=== PATIENT | female | born 1960 | race Caucasian/White ===

== ENCOUNTER → 2016-09-10 | Outpatient (CLI) | payer BC ==
[~2016-09-10] MED LIST: CITRTAB15 PO; ESTRTAB10 PO; IBUP200C AD; LIDO1OIN2 TOP; VITAMIN E OTC
--- NOTE | 2016-09-10 10:00 | REPMRS ---
Patient History The patient states she had a clinical breast exam in 08/2016. Patient is postmenopausal. No known family history of cancer. Digital Woman Screen Mammo: September 10, 2016 - Exam #: [id number] Bilateral CC and MLO view(s) were taken. Technologist: Chel Carter, Technologist Prior study comparison: September 08, 2015, digital woman screen mammo performed at [facility] to [facility]. September 08, 2014, left breast digital mammo diagnostic unilateral, performed at [facility]. September 06, 2014, digital woman screen mammo performed at [facility]. September 03, 2013, digital woman screen mammo performed at [facility]. FINDINGS: There are scattered fibroglandular densities. The previously noted left breast coarse calcifications are virtually resolved. There is a moderate amount of residual fibroglandular tissue which is fairly symmetric. There is no interval development of dominant mass, architectural distortion, or clustered microcalcification typical of malignancy. There has been no change in the appearance of the mammogram from the prior studies. ASSESSMENT: BI-RADS/ACR category 1 mammogram. Negative. Recommendation Routine screening mammogram of both breasts in 1 year (for women over age 40). This mammogram was interpreted with the aid of an FDA-approved computer-aided dectection system. Electronically Signed By: Reynold Aviles MD 09/10/16 0959
== END ==
LOC: M WHC 08:24
PROVIDERS: ATTEND Nurse Practitioner Family
DX: Z12.31 Encounter for screening mammogram for malignant neoplasm of breast (principal)

== ENCOUNTER → 2017-03-06 | Outpatient (REF) | payer BC, OTHER ==
[~2017-03-06] MED LIST changes: -IBUP200C AD; +IBUP200C10 AD
== END ==
LOC: M LAB REF 13:48
PROVIDERS: ATTEND Physician Assistant
DX: J02.9 Acute pharyngitis, unspecified (principal)

== ENCOUNTER → 2017-09-11 | Outpatient (REF) | payer OTHER | LOC: M SFHCWAGY 09:07 | DX: N76.0 Acute vaginitis (principal) | CPT/HCPCS: G0123 ==

== ENCOUNTER → 2017-09-11 | Outpatient (CLI) | payer BC | LOC: M WHC 08:44 | DX: Z12.31 Encounter for screening mammogram for malignant neoplasm of breast (principal) | CPT/HCPCS: 77067 ==

== ENCOUNTER → 2018-06-19 | Outpatient (REF) | payer OTHER ==
[~2018-06-19] MED LIST changes: +CHEW500C2 PO; -IBUP200C10 AD; +IBUP200C25 AD; +IBUP200C25 PO; +TYLE500T78 PO
[2018-06-20 10:51] LABS: HEPATITIS A ANTIBODY IGM NEGATIVE (NEGATIVE); HEPATITIS B CORE ANTIBODY IGM NEGATIVE (NEGATIVE); HEPATITIS B SURFACE ANTIGEN NEGATIVE (NEGATIVE); HEPATITIS C VIRUS ABY INDEX 0.1 INDEX (<0.8)
== END ==
LOC: M LAB REF 12:45
PROVIDERS: ATTEND Nurse Practitioner Family
DX: L81.8 Other specified disorders of pigmentation (principal)

== ENCOUNTER → 2018-09-12 | Outpatient (CLI) | payer BC ==
--- NOTE | 2018-09-12 11:15 | REP ---
BILATERAL SCREENING DIGITAL MAMMOGRAM WITH 3D TOMOSYNTHESIS: There are no palpable abnormalities or other breast complaints. The the patient states she had a clinical breast examination in August 2018. The the patient states she performs self-breast examinations 12 times per year. The Tyrer Cuzick Score is: 7.7% . Comparison is 09/08/2015 The breasts are heterogeneously dense, which could obscure small masses. There is no dominant mass, micro calcific cluster or architectural distortion that would indicate malignancy. On the comparison study 09/08/2015. There were macrocalcifications laterally in the left breast. These calcifications are no longer present. There are no additional findings on 3D tomosynthesiss. There is no change from the prior study. Impression: BIRADS/ACR category 1 mammogram. Negative. Recommendation: Routine annual screening mammography. This mammogram was interpreted with the aid of a FDA approved computer-aided detection system. A. Negative mammogram reports should not delay biopsy if a dominant or clinically suspicious mass is present. B. Not all breast cancers are identified by mammography or tomosynthesis. C. Adenosis and dense breasts may obscure an underlying neoplasm. Patient letter M1 dense breasts. Electronically Signed by Rajeev Mejia MD 09/12/2018 11:07 A
== END ==
LOC: M WHC 09:10
PROVIDERS: ATTEND Nurse Practitioner Family
DX: Z12.31 Encounter for screening mammogram for malignant neoplasm of breast (principal)

== ENCOUNTER → 2019-01-01 | Outpatient (REF) | payer OTHER ==
[2019-01-02 11:09] LABS: HEPATITIS A ANTIBODY IGM NEGATIVE (NEGATIVE); HEPATITIS B CORE ANTIBODY IGM NEGATIVE (NEGATIVE); HEPATITIS B SURFACE ANTIGEN NEGATIVE (NEGATIVE); HEPATITIS C VIRUS ABY INDEX 0.1 INDEX (<0.8)
== END ==
LOC: M LAB REF 12:35
PROVIDERS: ATTEND Nurse Practitioner Family
DX: L81.8 Other specified disorders of pigmentation (principal)

== ENCOUNTER → 2019-09-16 | Outpatient (CLI) | payer BC ==
--- NOTE | 2019-09-16 09:02 | REPMRS ---
Patient History The patient states she had a clinical breast exam in September 2019. No known family history of cancer. No Hormone Replacement Therapy Digital Woman Screen Mammo: September 16, 2019 - Exam #: [id number] Bilateral CC and MLO view(s) were taken. Technologist: Carol Snowden, Technologist Prior study comparison: September 12, 2018, bilateral digital woman screen mammo performed at [facility]. September 11, 2017, bilateral digital woman screen mammo performed at [facility]. September 10, 2016, digital woman screen mammo performed at [facility]. FINDINGS: There are scattered fibroglandular densities. The Volpara volumetric breast density category is:B. There has been no change in the appearance of the mammogram from the prior studies. There is a mild amount of scattered fibroglandular density which is fairly symmetric. There is no interval development of dominant mass, architectural distortion, or grouped microcalcification suggestive of malignancy. 3-D tomosynthesis shows no additional findings. Assessment: BI-RADS/ACR category 1 mammogram. Negative Mammogram. Recommendation Routine screening mammogram of both breasts in 1 year (for women over age 40). This patient's Lifetime Breast Cancer Risk is estimated at 7.5 %. This mammogram was interpreted with the aid of an FDA-approved computer-aided dectection system. Electronically Signed By: Reynold Aviles MD 09/16/19 0901
== END ==
LOC: M WHC 08:00
PROVIDERS: ATTEND Nurse Practitioner Family
DX: Z12.31 Encounter for screening mammogram for malignant neoplasm of breast (principal)

== ENCOUNTER → 2020-04-13 | Outpatient (CLI) | payer BC ==
[~2020-04-13] MED LIST changes: +ACET500T15 PO; +ATOR1TAB19 PO; +CALC-362 PO; -CHEW500C2 PO; +OMEG350C PO
== END ==
LOC: M LABSMTC 12:16
PROVIDERS: ATTEND Anesthesiology
DX: Z01.812 Encounter for preprocedural laboratory examination (principal); Z20.822 Contact with and (suspected) exposure to COVID-19

== ENCOUNTER 2020-04-18 12:53 | Day surgery (SDC) | payer BC, OTHER ==
[~2020-04-18] VITALS: Ht 175.3 cm; Wt 76.7 kg
[~2020-04-18 12:53] MED LIST changes: +NS 1,000 ML IV ONE
--- OUTSIDE RECORDS SUMMARY | 2020-04-18 12:58 | CCD | Continuity of Care Document ---
Author Author Katharina THURSTON M.D. Organization Unknown Address [address] [place] [address] Phone [phone] Care Team Providers Care Flatbed Driver Name Role Phone Chrissy Canchola B[employer]ER [employer]SEMBLER AUTM [phone] Problems Active Problems Provider Date Screening for malignant neoplasm of colon Beltran Pearson Onset: 04/06/2014 History of polyp of colon Avtar Thurston M.D. Onset: Screening for malignant neoplasm of colon Avtar steiner M.D. Onset: 05/05/2015 Social History Type Date Description Comments Sex Unknown ETOH Use Occasionally Tobacco Use Start: Unknown Patient has never smoked Allergies, Adverse Reactions, Alerts Description No Known Drug Allergies Medications Active Medications SIG Qnty Indications Ordering Provide r Date [place] [phone] Tablets as directed 1box Avtar Thurston M.D. 04/07/2020 Ibuprofen Unknown Byron Red OTC Unknown Atorvastatin Calcium 10mg Tablets Take 1 Tablet By Mouth Every Day Unknown Calcium 250mg Capsules Unknown Ibuprofen 200 200mg Tablets Unknown Immunizations Description No Information Available Vital Signs Date Vital Result Comment 04/07/2020 11:42am Height 68 inches 5'8" Weight 175.00 lb BP Systolic 132 mmHg BP Diastolic 75 mmHg Heart Rate 74 /min BMI (Body Mass Index) 26.6 kg/m2 Weight 79.380 kg Body Temperature 97.5 F 02/21/2017 3:09pm Height 68 inches 5'8" Weight 173.00 lb BP Systolic 144 mmHg BP Diastolic 92 mmHg Heart Rate 86 /min BMI (Body Mass Index) 26.3 kg/m2 Weight 78.473 kg Results Description No Information Available Procedures Description No Information Available Medical Devices Description No Information Available Encounters Type Date Location Provider Dx Diagnosis Office Visit 04/07/2020 11:00a Main Office Avtar Thurston M.D. Z 86.010 Personal history of colonic polyps Assessments Date Code Description Provider 04/07/2020 Z86.010 Personal history of colonic poly ps Avtar Thurston M.D. Plan of Treatment Future Appointment(s):* 04/18/2020 2:00 pm - Avtar Thurston M.D. at Main Office 04/07/2020 - Avtar Thurston M.D.* Z86.010 Personal history of colonic polyps* Comments:* 59 yo wf who presents for a colonoscopy due to a h/o colonic polyps. Last scope was in 2018. No c/o abdominal pain, weight loss, change in bowel habits, or rectal bleeding. No family h/o colon cancer. No h/o chest pain, or sob. Plan:1.Schedule patient for Colonoscopy. 2. Informed consent given.3. Advised to stop asa, plavix,and anticoagulation 3 to 7 days prior to the procedures. Functional Status Description No Information Available Mental Status Description No Information Available Referrals Description No Information Available
--- OUTSIDE RECORDS SUMMARY | 2020-04-18 12:58 | CCD | Continuity of Care Document ---
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 Onset: 12/12/19 17 Social History Type Date Description Comments Sex Unknown ETOH Use Drinks 3 Alcoholic Beverages Per Week Tobacco Use Start: Unknown Patient has never smoked Allergies, Adverse Reactions, Alerts Description No Known Drug Allergies Medications Active Medications SIG Qnty Indications Ordering Provide r Date Ibuprofen 200 200mg Tablets 2-3 q pm po Adolph Whiteside MD 01/14/2020 Bowlus 3 1000mg Capsules 1 by mouth every day Geno Barrios FNP 01/01/2019 Acetaminophen Extra Strength 500mg Tablets 1 by mouth Q Am Geno Barrios FNP 12/19 Atorvastatin Calcium 10mg Tablets 1 by mouth every day 90tabs Adolph Whiteside MD 06/13/2017 Citracal Plus Bone Density Builder Tablets 1 qd PO Unknown Immunizations CPT Code Status Date Vaccine Lot # [id number] Given 12/05/2015 Adacel- Tetanus Diphtheria P ertussis (Age64 & Under) [id number] Refused 01/01/2019 Influenza Vaccin e Quadrivalent Preser/Antibiotic Free Im Use [id number] Refused 12/19/2017 Influenza Virus Vaccine, Quadrivalent ([id number]), Derived From Cell Vital Signs Date Vital Result Comment 01/14/2020 8:57am BP Systolic 124 mmHg RT Arm BP Diastolic 80 mmHg RT Arm Heart Rate 76 /min Height 68 inches 5'8" Weight 174.00 lb BMI (Body Mass Index) 26.5 kg/m2 01/01/2019 9:00am BP Systolic 124 mmHg RT Arm BP Diastolic 72 mmHg RT Arm Heart Rate 85 /min Height 68 inches 5'8" Weight 170.25 lb O2 % BldC Oximetry 98 % RM Air BMI (Body Mass Index) 25.9 kg/m2 Results Test Acquired Date Facility Test Result H/L Range Note Comprehensive Chem Profile 01/14/2020 [facility] Prepared Foods Service Team Member: [place] [address] [phone] Glucose 89 mg/dL 74 - 99 1 BUN 16 mg/dL 7 - 18 Creatinine 0.8 mg/dL 0.6 - 1.3 Sodium 142 mEq/L 136 - 145 Potassium 4.2 mEq/L 3.5 - 5.1 Chloride 106 mEq/L 98 - 107 Carbon Dioxide 27 mEq/L 21 - 32 Calcium 9.2 mg/dL 8.5 - 10.1 Alk. Phosphatase 75 mg/dL 46 - 116 Total Bilirubin 0.5 mg/dL 0.2 - 1.0 Ast (Sgot) 21 U/L 15 - 37 Alt (SGPT) 26 U/L 12 - 78 Albumin 4.3 g/dL 3.4 - 5.0 Total Protein 7.4 g/dL 6.4 - 8.2 A/G Ratio 1.39 CALC 1.00 - 1.90 GFR >= 60 mL/min >60 GFR >= 60 mL/min >60 2 Lipid Profile 01/14/2020 [facility] Prepared Foods Service Team Member: [place] [address] [phone] Cholesterol 193 mg/dL 131 - 200 Triglycerides 73 mg/dL 30 - 150 HDL Cholesterol 73 mg/dL High 35 - 60 LDL (Calculated) 105 CALC 50 - 159 1 100-125 mg/dL PRE-DIABET ES/FASTING >126 mg/dL DIABETES/FASTING 2 CHRONIC KIDNEY DISEASE STAGI NG PER NKF STAGE I & II GFR >= 60 NORMAL TO MILDLY DECREASED STAGE III GFR 30-59 MODERATELY DECREASED STAGE IV GFR 15-29 SEVERELY DECREASED STAGE V GFR <15 VERY LITTLE GFR LEFT ESRD GFR <15 ON DATA PROCESSING MECHANIC Procedures Date Code Description Status 03/25/2017 [id number] Colonoscopy Completed 12/20/2015 [id number] Colonoscopy Completed 05/09/2015 [id number] Colonoscopy Completed 10/27/2014 [id number] Colonoscopy Completed 04/15/2014 [id number] Colonoscopy Completed 04/14/2014 [id number] Colonoscopy Completed Medical Devices Description No Information Available Encounters Type Date Location Provider Dx Diagnosis Office Visit 01/14/2020 9:00a [facility] JIMY Croft Z00.00 Encntr for general adult medical exam w/ o abnormal findings E78.00 Pure hypercholesterolemia, u nspecified N95.1 Menopausal and female climac teric states Z86.010 Personal history of colonic polyps M54.2 Cervicalgia N32.81 Overactive bladder E66.3 Overweight Z68.26 Body mass index [BMI] 26.0-2 6.9, adult Z13.89 Encounter for screening for other disorder Assessments Date Code Description Provider 01/14/2020 Z00.00 Encounter for genera l adult medical examination without abnormal findings JIMY Goel 01/14/2020 E78.00 Pure hypercholesterolemia, unspe cified Chrissy Canchola, JIMY 01/14/2020 N95.1 Menopausal and female climacteri c states JIMY Goel 01/14/2020 Z86.010 Personal history of colonic poly ps Chrissy Canchola, JIMY 01/14/2020 M54.2 Cervicalgia Chrissy Canchola, F [employer]ELD 01/14/2020 N32.81 Overactive bladder JIMY Goel 01/14/2020 E66.3 Overweight Chrissy Canchola, F [employer]TER[employer] TESTER FIELD 01/14/2020 Z68.26 Body mass index [BMI] 26.0-26.9, adult JIMY Goel 01/14/2020 Z13.89 Encounter for screening for othe r disorder JIMY Goel Plan of Treatment Future Appointment(s):* 01/13/2021 8:00 am - JIMY Goel at [facility] 01/14/2020 - JIMY Goel* Z00.00 Encounter for general adult medical examination without abnormal findings* Comments:* Follow up annually. Normal exam and is healthy. * E78.00 Pure hypercholesterolemia, unspecified* Comments:* Lipids are pending, continues on Atorvastatin and is refilled today. Encouraged Mediterranean diet; Low fat/high fiber diet encouraged coupled with regular exercise. * N95.1 Menopausal and female climacteric states* Comments:* Follows with [facility]. * Z86.010 Personal history of colonic polyps* Comments:* Plans for repeat colonoscopy in Apr 2020. * M54.2 Cervicalgia* Comments:* Using OTC ibuprofen with good relief when needed. * N32.81 Overactive bladder* Comments:* Patient declines trial of oxybutynin. Limit caffeine and PO fluids after dinner time. She will follow up with me if she decides to trial pharmacotherapy. * E66.3 Overweight* Comments:* Weight loss would be favorable portion control, balanced diet and regular exercise are encouraged. * Z68.26 Body mass index [BMI] 26.0-26.9, adult * Z13.89 Encounter for screening for other disorder * All * New Medication:* Ibuprofen 200 200 mg - 2-3 q pm po * Comments:* Follow up in one year with repeat labs at that time.Encouraged balanced diet, 4-5 servings of fresh fruits and vegetables daily. Recommended at least 30 minutes of exercise daily and eight 8 oz. glasses of water daily.SBE monthly. Well woman care done and UTD with woman to woman including mammograms.Colonoscopy Apr 2020. Flu vaccination: declinesTDaP vaccination: UTDShingrix: declinesRTC PRN for acute illness. COVID precautions are discussed and social distancing/mask use/ frequent hand washing and sanitizing are encouraged.Flu shot is encouraged this fall before the end of December but patient does decline. Functional Status Description No Information Available Mental Status Description No Information Available Referrals Description No Information Available
--- OUTSIDE RECORDS SUMMARY | 2020-04-18 12:58 | CCD ---
Author Author [facility] Organization [facility] Address Unknown Phone Unavailable Care Team Providers Care Assistant Foreman Name Role Phone George Thurston MD Unavailable Unavailable George Thurston MD Unavailable Unavailable George Thurston MD Unavailable Unavailable George Thurston MD Unavailable Unavailable George Thurston MD Unavailable Unavailable George Thurston MD Unavailable Unavailable George Thurston MD Unavailable Unavailable George Thurston MD Unavailable Unavailable George Thurston MD Unavailable Unavailable George Thurston MD Unavailable Unavailable George Thurston MD Unavailable Unavailable George Thurston MD Unavailable Unavailable George Thurston MD Unavailable Unavailable George Thurston MD Unavailable Unavailable George Thurston MD Unavailable Unavailable George Thurston MD Unavailable Unavailable George Thurston MD Unavailable Unavailable George Thurston MD Unavailable Unavailable George Thurston MD Unavailable Unavailable George Thurston MD Unavailable Unavailable George Thurston MD Unavailable Unavailable George Thurston MD Unavailable Unavailable George Thurston MD Unavailable Unavailable George Thurston MD Unavailable Unavailable George Thurston MD Unavailable Unavailable George Thurston MD Unavailable Unavailable George Thurston MD Unavailable Unavailable George Thurston MD Unavailable Unavailable George Thurston MD Unavailable Unavailable George Thurston MD Unavailable Unavailable George Thurston MD Unavailable Unavailable George Thurston MD Unavailable Unavailable George Thurston MD Unavailable Unavailable George Thurston MD Unavailable Unavailable Karena S Avtar SWIFT Unavailable Unavailable Karena, S Avtar SWIFT Unavailable Unavailable Karena, S Avtar SWIFT Unavailable Unavailable Karena, S Avtar SWIFT Unavailable Unavailable Karena, S Avtar SWIFT Unavailable Unavailable Karena, S Avtar SWIFT Unavailable Unavailable Karena, S Avtar SWIFT Unavailable Unavailable Karena, S Avtar SWIFT Unavailable Unavailable Karena, S Avtar SWIFT Unavailable Unavailable Karena, S Avtar SWIFT Unavailable Unavailable Karena, S Avtar SWIFT Unavailable Unavailable Karena, S Avtar SWIFT Unavailable Unavailable Karena, S Avtar SWIFT Unavailable Unavailable Karena, S Avtar MD Unavailable Unavailable Jesika, Chrissy RN TRANSPORT Unavailable Unavailable Jesika, Chrissy RN TRANSPORT Unavailable Unavailable Jesika, Chrissy RN TRANSPORT Unavailable Unavailable Jesika, Chrissy RN TRANSPORT Unavailable Unavailable Jesika, Chrissy RN TRANSPORT Unavailable Unavailable Jesika, Chrissy RN TRANSPORT Unavailable Unavailable Jesika, Chrissy RN TRANSPORT Unavailable Unavailable Jesika, Chrissy RN TRANSPORT Unavailable Unavailable Jesika, Chrissy RN TRANSPORT Unavailable Unavailable Jesika, Chrissy RN TRANSPORT Unavailable Unavailable Jesika, Chrissy RN TRANSPORT Unavailable Unavailable Jesika, Chrissy RN TRANSPORT Unavailable Unavailable Jesika, Chrissy RN TRANSPORT Unavailable Unavailable Jesika, Chrissy RN TRANSPORT Unavailable Unavailable Jesika, Chrissy RN TRANSPORT Unavailable Unavailable Jesika, Chrissy RN TRANSPORT Unavailable Unavailable Jesika, Chrissy RN TRANSPORT Unavailable Unavailable Jesika, Chrissy RN TRANSPORT Unavailable Unavailable Jesika, Chrissy RN TRANSPORT Unavailable Unavailable Jesika, Chrissy RN TRANSPORT Unavailable Unavailable Jesika, Chrissy RN TRANSPORT Unavailable Unavailable Jesika, Chrissy RN TRANSPORT Unavailable Unavailable Jesika, Chrissy RN TRANSPORT Unavailable Unavailable Jesika, Chrissy RN TRANSPORT Unavailable Unavailable Jesika, Chrissy RN TRANSPORT Unavailable Unavailable Jesika, Chrissy RN TRANSPORT Unavailable Unavailable Jesika, Chrissy RN TRANSPORT Unavailable Unavailable Re-disclosure Warning The records that you are about to access may contain information from federally-assisted alcohol or drug abuse programs. If such information is present, then the following federally mandated warning applies: This information has been disclosed to you from records protected by federal confidentiality rules (42 CFR part 2). The federal rules prohibit you from making any further disclosure of this information unless further disclosure is expressly permitted by the written consent of the person to whom it pertains or as otherwise permitted by 42 CFR part 2. A general authorization for the release of medical or other information is NOT sufficient for this purpose. The Federal rules restrict any use of the information to criminally investigate or prosecute any alcohol or drug abuse patient.The records that you are about to access may contain highly sensitive health information, the redisclosure of which is protected by Article 27-F of the [facility] Public Health law. If you continue you may have access to information: Regarding HIV / AIDS; Provided by facilities licensed or operated by the [facility] Office of Mental Health; or Provided by the [facility] Office for People With Developmental Disabilities. If such information is present, then the following [facility] mandated warning applies: This information has been disclosed to you from confidential records which are protected by state law. State law prohibits you from making any further disclosure of this information without the specific written consent of the person to whom it pertains, or as otherwise permitted by law. Any unauthorized further disclosure in violation of state law may result in a fine or chcf sentence or both. A general authorization for the release of medical or other information is NOT sufficient authorization for further disc losure. Family History Family Member Name Family Member Gender Family Member Status Date o f Status Description Data Source(s) Unknown Female Problem [facility] ([facility]) Unknown Female Problem [facility] ([facility]) Unknown Male Problem [facility] ([facility]) Encounters Encounter Providers Location Date Indications Data Source(s ) Outpatient Attender: Avtar Thurston MD Main Office 04/07/2020 10:00:00 AM EST [facility] ([facility]) Outpatient Attender: Chrissy German 09:00:00 AM EDT [facility] ([facility] ) [facility] [address] [place] [address] 09/16/2019 12:00:00 AM EDT eCW1 ([facility]) Medications Medication Brand Name Start Date Product Form Dose Route Admi nistrative Instructions Pharmacy Instructions Status Indications Reaction Description Data Source(s) Sutab Sutab 04/07/2020 12:00:00 AM EST active [facility] ([facility]) Ibuprofen 200 MG Oral Tablet Ibuprofen 200 01/14/2020 12:00:00 AM EDT active [facility] ([facility]) Insurance Providers Payer name Policy type / Coverage type Policy ID Covered constitution party ID Covered constitution party's relationship to myers Policy Myers Plan Information [facility] [id number] BC[employer] EMPIRE TIP DIV [id number] BCBS EMPIRE TIP DIV [id number] [facility] [id number] [id number] ANSI-Commercial [id number] [facility] Medigap Part B [id number] Family Dep endent [id number] [facility] Health Maintenance Organization (HMO) [id number] Family Dependent [id number] [facility] [place] [facility] [id number] Family Depende nt [id number] [facility] [place] [employer] [id number] Family Depende nt [id number] EMPIRE ([facility]) O [id number] S [id number] BCBS EMPIRE TIP DIV [id number] [employer] [facility] [id number] [id number] BCBS EMPIRE TIP DIV [id number] [id number] [facility] [place] [employer] [id number] Family Depende nt [id number] [facility] [place] Health Maintenance Organization (HMO) [id number] Family Dependent [id number] [facility] Medigap Part B [id number] Family Dep endent [id number] [facility] Health Maintenance Organization (HMO) [id number] Family Dependent [id number] [facility] [place] [employer] [id number] Family Depende nt [id number] [facility] [facility] Medigap Part B [id number] Family Dep endent [id number] [facility] [facility] Health Maintenance Organization (HMO) [id number] Family Dependent [id number] [facility] [id number] HU2 [id number] [facility] [place] [facility] Family Depende nt [facility] [place] Health Maintenance Organization (HMO) Family Dependent [facility] Medigap Part B Family Dep endent [facility] [facility] Health Maintenance Organization (HMO) Family Dependent [facility] O [id number] P [id number] [facility] EMPIRE TIP DIV [id number] [id number] [facility] [place] [employer] Family Depende nt [id number] Results ID Date Data Source [id number] 04/13/2020 12:00:00 PM EST [facility] Name Value Range Interpretation Code Description Data Alena rce(s) Supporting Document(s) SARS coronavirus 2 RNA Not Detected [facility] This lab was ordered by [facility] and reported by [facility]. ID Date Data Source [id number] 01/14/2020 09:19:00 AM EDT [facility] ([facility]) Name Value Range Interpretation Code Description Data Alena rce(s) Supporting Document(s) Cholesterol [Mass/volume] in Serum or Plasma 193 mg/dL 131-200 [facility] ([facility]) Triglyceride [Mass/volume] in Serum or Plasma 73 mg/dL 30-150 [facility] ([facility]) Cholesterol in HDL [Mass/volume] in Serum or Plasma 73 mg/dL 35-60 [facility] ([facility]) Cholesterol in LDL [Mass/volume] in Serum or Plasma by calcu lation 105 CALC 50-159 [facility] ([facility]) ID Date Data Source [id number] 01/14/2020 09:19:00 AM EDT [facility] ([facility]) Name Value Range Interpretation Code Description Data Alena rce(s) Supporting Document(s) Glucose [Mass/volume] in Serum or Plasma 89 mg/dL 74-99 [facility] ([facility]) 100-125 mg/dL PRE-DIABETES/FASTING >126 mg/dL DIABETES/FASTING Urea nitrogen [Mass/volume] in Serum or Plasma 16 mg/dL 7-18 [facility] ([facility]) Sodium [Moles/volume] in Serum or Plasma 142 meq/L 136-145 [facility] ([facility]) Potassium [Moles/volume] in Serum or Plasma 4.2 meq/L 3.5-5.1 [facility] ([facility]) Creatinine 0.8 mg/dL 0.6-1.3 [facility]) Chloride [Moles/volume] in Serum or Plasma 106 meq/L 98-107 [facility] ([facility]) Calcium [Mass/volume] in Serum or Plasma 9.2 mg/dL 8.5-10.1 [facility] ([facility]) Carbon dioxide, total [Moles/volume] in Serum or Plasma 27 meq/L 21 -32 [facility] ([facility]) Aspartate aminotransferase [Enzymatic activity/volume] in Serum or Plasma 21 U/L 15-37 [facility] ([facility] ) Total Bilirubin 0.5 mg/dL 0.2-1.0 [facility] ([facility]) Alkaline phosphatase isoenzyme [Units/volume] in Serum or Pl asma 75 mg/dL 46-116 [facility] ([facility]) Alanine aminotransferase [Enzymatic activity/volume] in Seru m or Plasma 26 U/L 12-78 [facility] ([facility]) Proteinase 3 Ab [Units/volume] in Serum 7.4 g/dL 6.4-8.2 [facility] ([facility]) Albumin [Mass/volume] in Serum or Plasma 4.3 g/dL 3.4-5.0 [facility] ([facility]) A/G Ratio 1.39 CALC 1.00-1.90 [facility] ([facility]) Glomerular filtration rate/1.73 sq M pre dicted among blacks [Volume Rate/Area] in Serum or Plasma by Creatinine-based formula (MDRD) Laboratory test result [email or web address] <content>CHRONIC KIDNEY DISEASE STAGING PER NKF</content>
<content></content>
<content>STAGE I & II GFR >= 60 NORMAL TO MILDLY DECREASED</content>
<content>STAGE III GFR 30-59 MODERATELY DECREASED</content>
<content>STAGE IV GFR 15-29 SEVERELY DECREASED</content>
<content>STAGE V GFR <15 VERY LITTLE GFR LEFT</content>
<content>ESRD GFR <15 ON SENIOR SQL SERVER DEVELOPER</content>
<content></content> Glomerular filtration rate/1.73 sq M pre dicted among non-blacks [Volume Rate/Area] in Serum or Plasma by Creatinine-based formula (MDRD) Laboratory test result [facility] ([facility] ) Procedure Vital Signs ID Date Data Source UNK Name Value Range Interpretation Code Description Data Source(s) Body temperature 97.5 [degF] 97.5 [degF] [facility] ([facility]) Body weight 79.380 kg 79.380 kg [facility] Body mass index (BMI) [Ratio] 26.6 kg/m2 26.6 k g/m2 [facility] ([facility]) Heart rate 74 /min 74 /min [facility] ([facility]) Diastolic blood pressure 75 mm[Hg] 75 mm[Hg] [facility] ([facility]) Systolic blood pressure 132 mm[Hg] 132 mm[Hg] [facility] Body weight 175.00 [lb_av] 175.00 [lb_av] [facility] ([facility]) Body height 68 [in_i] 68 [in_i] [facility] 5'8" Body mass index (BMI) [Ratio] 26.5 kg/m2 26.5 k g/m2 [facility] ([facility]) Body weight 174.00 [lb_av] 174.00 [lb_av] MED[facility] T ([facility]) Body height 68 [in_i] 68 [in_i] [facility] ([facility]) 5'8" Heart rate 76 /min 76 /min [facility] ([facility]) Diastolic blood pressure 80 mm[Hg] 80 mm[Hg] [facility] ([facility]) RT Arm Systolic blood pressure 124 mm[Hg] 124 mm[Hg] M [facility] ([facility]) RT Arm
--- NOTE | 2020-04-18 14:27 | ROOR ---
Patient Name: Katharina Lo Procedure Date: 04/18/2020 2:04 PM Date of : 1960 Age: 60 Room: [facility] Gender: Female Note Status: Finalized Procedure: Total Colonoscopy to Cecum Indications: High risk colon cancer surveillance: Personal history of colonic polyps, Last colonoscopy: 2017 Providers: Avtar Thurston MD Referring MD: Chrissy Canchola NP Requesting Provider: Medicines: Monitored Anesthesia Care Complications: No immediate complications. Procedure: Pre-Anesthesia Assessment: - The heart rate, respiratory rate, oxygen saturations, blood pressure, adequacy of pulmonary ventilation, and response to care were monitored throughout the procedure. The Colonoscope was introduced through the anus and advanced to the cecum, identified by appendiceal orifice and ileocecal valve. The colonoscopy was performed without difficulty. The patient tolerated the procedure well. The quality of the bowel preparation was excellent. Findings: The perianal and digital rectal examinations were normal. Non-bleeding internal hemorrhoids were found during retroflexion. The hemorrhoids were small and Grade I (internal hemorrhoids that do not prolapse). Multiple small and large-mouthed diverticula were found in the recto-sigmoid colon, sigmoid colon and descending colon. The exam was otherwise without abnormality on direct and retroflexion views. Impression: - Non-bleeding internal hemorrhoids. - Diverticulosis in the recto-sigmoid colon, in the sigmoid colon and in the descending colon. - The examination was otherwise normal on direct and retroflexion views. - No specimens collected. - The exam was otherwise normal to the cecum. Recommendation: - Patient has a contact number available for emergencies. The signs and symptoms of potential delayed complications were discussed with the patient. Return to normal activities tomorrow. Written discharge instructions were provided to the patient. - High fiber diet. - Discharge patient to home. - Continue present medications. - Repeat colonoscopy in 5 years for surveillance. - Return to referring physician. - The findings and recommendations were discussed with the patient. Procedure Code(s): --- Professional --- G0105, Colorectal cancer screening; colonoscopy on individual at high risk Diagnosis Code(s): --- Professional --- Z86.010, Personal history of colonic polyps K64.0, First degree hemorrhoids K57.30, Diverticulosis of large intestine without perforation or abscess without bleeding CPT copyright 2019 [employer]. All rights reserved. The codes documented in this report are preliminary and upon residential appraiser review may be revised to meet current compliance requirements. Avtar Thurston MD Avtar Thurston MD 04/18/2020 2:26:30 PM Electronically signed by Avtar Thurston MD Number of Addenda: 0 Note Initiated On: 04/18/2020 2:04 PM Estimated Blood Loss: Estimated blood loss: none.
[2020-04-18] MEDS ORDERED: propofoL 200 MG/20 ML VIAL As Ordered ONE (14:47)
[2020-04-18] MEDS ORDERED: LIDOCAINE 2% 100MG/5ML SDV (FOR ANES.) As Ordered ONE (14:48)
[2020-04-18 14:54] VITALS: BP 113/66
== END 2020-04-18 14:54 | disposition home or self-care (01) ==
LOC: M OPP 12:53
PROVIDERS: ATTEND Internal Medicine Gastroenterology
DX: Z12.11 Encounter for screening for malignant neoplasm of colon (principal); Z86.010 Personal history of colon polyps; K64.0 First degree hemorrhoids; K57.30 Diverticulosis of large intestine without perforation or abscess without bleeding; E78.5 Hyperlipidemia, unspecified; R01.1 Cardiac murmur, unspecified; Z79.899 Other long term (current) drug therapy

== ENCOUNTER → 2020-09-21 | Outpatient (REF) | payer OTHER ==
[~2020-09-21] MED LIST changes: -NS 1,000 ML IV ONE
== END ==
LOC: M SFHCWAGY 13:11
PROVIDERS: ATTEND Nurse Practitioner Women's Health
DX: Z12.4 Encounter for screening for malignant neoplasm of cervix (principal); Z01.419 Encounter for gynecological examination (general) (routine) without abnormal findings

== ENCOUNTER → 2020-09-21 | Outpatient (CLI) | payer BC ==
--- NOTE | 2020-09-21 10:34 | REPMRS ---
Patient History The patient states she had a clinical breast exam in September 2020. No known family history of cancer. No Hormone Replacement Therapy Patient states no breast complaints today. Patient has signed MRS History Sheet. Digital Woman Screen Mammo: September 21, 2020 - Exam #: [id number] Bilateral CC and MLO view(s) were taken. Technologist: Carol Snowden, Technologist Prior study comparison: September 16, 2019, bilateral digital woman screen mammo performed at [facility]. September 12, 2018, bilateral digital woman screen mammo performed at [facility]. FINDINGS: There are scattered fibroglandular densities. Screening. Digital screening (2D) mammography was performed bilaterally in the CC and MLO projections. Additionally, breast tomosynthesis (3D mammography) was performed bilaterally in the CC and MLO projections. Todays exam was compared to the prior exam/exams. By history, the patient has no complaints of a palpable breast abnormality or other significant breast complaints. The breasts are unchanged in size and shape. There are no charlie-soft tissue densities or spiculated masses. There is no internal architectural distortion. There are no suspicious charlie-calcific clusters. Skin thickening or nipple retraction is not present. IMPRESSION: BI-RADS Category 1- Benign Findings. There is no evidence of malignant alteration of the breasts. Followup examination recommended in one year. The Volpara volumetric breast density category is B, there are scattered areas of fibroglandular densities. This mammogram was read with the assistance of [facility],an FDA approved computer aided detection system for mammography. The lifetime Tyrer-Cuzick score is 7.3 % Negative x-ray reports should not delay surgical consultation if a dominant or clinically suspicious mass is present. Not all breast cancers can be identified by mammography. Therefore, we recommend that you continue to perform regular breast self-examination and physical examination and then promptly contact your physician of any concerns or changes. Adenosis and dense breasts may obscure an underlying neoplasm. Assessment: BI-RADS/ACR category 1 mammogram. Negative Mammogram. Recommendation Routine screening mammogram of both breasts in 1 year. Electronically Signed By: Donell Miguel DO 09/21/20 [id number]
== END ==
LOC: M WHC 09:16
PROVIDERS: ATTEND Nurse Practitioner Women's Health
DX: Z12.31 Encounter for screening mammogram for malignant neoplasm of breast (principal)

== ENCOUNTER → 2021-05-26 | Outpatient (REF) | payer BC, OTHER ==
[2021-05-26 13:26] LABS: FERRITIN 76 NG/ML (8-252); IRON (FE) 86 UG/DL (50-170)
== END ==
LOC: M LAB REF 12:14
PROVIDERS: ATTEND Registered Nurse
DX: D64.9 Anemia, unspecified (principal)

== ENCOUNTER → 2022-03-01 | Outpatient (CLI) | payer BC, OTHER | LOC: M WHC 09:03 | PROVIDERS: ATTEND Nurse Practitioner Family | DX: Z12.31 Encounter for screening mammogram for malignant neoplasm of breast (principal) ==

== ENCOUNTER → 2022-03-01 | Outpatient (REF) | payer OTHER | LOC: M PLALAB 11:27 | PROVIDERS: ATTEND Nurse Practitioner Family | DX: Z12.4 Encounter for screening for malignant neoplasm of cervix (principal) ==

== ENCOUNTER → 2022-03-27 | Outpatient (REF) | payer OTHER ==
[2022-03-27 13:59] LABS: FERRITIN 68.7 NG/ML (7.3-270.7); PERCENT SATURATION 41.5 % (13.2-45.0)
== END ==
LOC: M LAB REF 12:34
PROVIDERS: ATTEND Physician Assistant Medical
DX: D64.9 Anemia, unspecified (principal)

== ENCOUNTER → 2023-04-22 | Outpatient (CLI) | payer BC, OTHER | LOC: M WHC 09:22 | PROVIDERS: ATTEND Nurse Practitioner Family | DX: Z12.31 Encounter for screening mammogram for malignant neoplasm of breast (principal) ==

== ENCOUNTER → 2024-04-01 | Outpatient (REF) | payer OTHER, BC ==
[2024-04-01 13:19] LABS: PERCENT SATURATION 45.1 % (13.2-45.0)
[2024-04-01 13:22] LABS: FERRITIN 86.8 NG/ML (7.3-270.7)
== END ==
LOC: M LAB REF 12:25
PROVIDERS: ATTEND Physician Assistant Medical
DX: D50.9 Iron deficiency anemia, unspecified (principal)

== ENCOUNTER → 2024-10-05 | Outpatient (REF) | payer BC ==
[2024-10-07 15:38] LABS: HPV APTIMA Not Detected (Not Detected)
== END ==
LOC: M PLALAB 09:46
PROVIDERS: ATTEND Nurse Practitioner Family
DX: Z12.31 Encounter for screening mammogram for malignant neoplasm of breast (principal)

== ENCOUNTER → 2024-10-05 | Outpatient (CLI) | payer BC | LOC: M WHC 09:13 | PROVIDERS: ATTEND Obstetrics & Gynecology | DX: Z12.31 Encounter for screening mammogram for malignant neoplasm of breast (principal); R92.323 Mammographic fibroglandular density, bilateral breasts ==

== ENCOUNTER 2024-11-06 06:15 | Day surgery (SDC) | payer BC ==
[~2024-11-06] VITALS: Ht 175.3 cm; Wt 73.2 kg
[2024-11-06] MEDS: LR 1,000 ML IV SCH (06:20)
[2024-11-06 06:53] LABS: PLATELET COUNT, AUTOMATED 233 10^3/uL (150-450)
[2024-11-06] MEDS ORDERED: CALC-190 PO (07:06)
[2024-11-06] MEDS ORDERED: HOME MED LIST COMPLETE! XX SCH (07:10)
[2024-11-06] MEDS: SCOPOLAMINE 1MG TRANSDERMAL PATCH TOP ONE (07:11)
[2024-11-06] MEDS ORDERED: LIDOCAINE 2% 100 MG/5 ML SDV (FOR ANES.) As Ordered ONE (07:17)
[2024-11-06] MEDS ORDERED: ROCURONIUM BROMIDE 50MG/5ML VIAL As Ordered ONE (07:17)
[2024-11-06] MEDS ORDERED: HYDROmorphone HCL 2 MG/ML 1 ML VIAL As Ordered ONE (07:42)
[2024-11-06] MEDS: ceFAZolin SOD 2 GM IV ONCE IV ONE (07:42)
[2024-11-06] MEDS ORDERED: ACETAMINOPHEN 1000MG/100ML IV BAG As Ordered ONE (07:53)
[2024-11-06] MEDS ORDERED: dexAMETHasone 4 MG/ML 1 ML VIAL As Ordered ONE (07:59)
[2024-11-06] MEDS ORDERED: ONDANSETRON 4MG 2ML VIAL As Ordered ONE (08:00)
[2024-11-06] MEDS: HYDROMORPHONE HCL 0.5 MG/0.5 ML SYRINGE IV PRN (10:09)
[2024-11-06] MEDS: ONDANSETRON 4MG 2ML VIAL IV PRN (10:09)
[2024-11-06] MEDS ORDERED: COLA100C5 PO (10:14)
[2024-11-06] MEDS ORDERED: IBUP600T42 PO (10:14)
[2024-11-06] MEDS ORDERED: OXYC1TAB23 PO (10:19)
[2024-11-06] MEDS: traMADol 50 MG TAB PO ONE (10:36)
[2024-11-06] MEDS: diphenhydrAMINE 50 MG/ML VIAL IV ONE (11:30)
[2024-11-06 13:51] VITALS: BP 131/64; TEMP 97.5; O2SAT 99
== END 2024-11-06 13:53 | disposition home or self-care (01) ==
LOC: M SDC 06:15
PROVIDERS: ATTEND Specialist
DX: N81.4 Uterovaginal prolapse, unspecified (principal); N88.8 Other specified noninflammatory disorders of cervix uteri; N83.292 Other ovarian cyst, left side; N83.291 Other ovarian cyst, right side; N83.02 Follicular cyst of left ovary; N83.01 Follicular cyst of right ovary; E78.00 Pure hypercholesterolemia, unspecified; Z79.899 Other long term (current) drug therapy; Z86.0100 Personal history of colon polyps, unspecified
CPT/HCPCS: 36415; 57250; 57425; 58571; 85027; 86850; 86900; 86901; 88302; 88307; J0131; J0665; J0690; J1100; J1171; J1200; J2405; J2765; J3010; S2900